=== PATIENT | female | born 1970 | race Caucasian/White ===

== ENCOUNTER → 2022-03-21 | Day surgery (SDC) | payer BC ==
[~2022-03-21] VITALS: Ht 154.9 cm; Wt 81.6 kg
[~2022-03-21] MED LIST: CEFAZOLIN SODIUM 1000MG/VIAL ONE; DEXAMETHASONE 4MG/ML 1ML VIAL ONE; FENTANYL CITRATE/PF 50MCG/ML 2ML VIAL IV PRN; FENTANYL CITRATE/PF 50MCG/ML 2ML VIAL ONE; KETOROLAC 30MG/ML VIAL ONE; LACTATED RINGERS 1,000 ML IV SCH; LEVO125T8 PO; LIDOCAINE HCL 1% 50ML VIAL (10MG/ML) ONE; MEPERIDINE HCL/PF 25MG/ML CPJ IV PRN; METOCLOPRAMIDE HCL 10MG/2ML VIAL ONE; MIDAZOLAM HCL 2 MG/2 ML VIAL ONE; ONDANSETRON HCL 4MG/2ML INJ IV SCH; ONDANSETRON HCL 4MG/2ML INJ ONE; PROPOFOL 200MG/20ML VIAL IV ONE
[2022-03-21 05:54] LABS: UCG SCREEN NEGATIVE
== END | disposition home or self-care (01) ==
LOC: OR 05:25
PROVIDERS: ATTEND Urology
DX: N20.0 Calculus of kidney (principal); E03.9 Hypothyroidism, unspecified; Z87.891 Personal history of nicotine dependence; Z79.899 Other long term (current) drug therapy; Z98.890 Other specified postprocedural states; Z82.49 Family history of ischemic heart disease and other diseases of the circulatory system; Z83.3 Family history of diabetes mellitus; Z20.822 Contact with and (suspected) exposure to COVID-19
CPT/HCPCS: 50590; 81025; 87426; C9803; J0690; J1100; J1885; J2250; J2405; J2704; J2765; J3010; J3490